=== PATIENT | male | born 2000 | race American Indian/Alaskan Native ===

== ENCOUNTER 2022-02-24 09:17 | Emergency (ER) | payer SELFPAY ==
[2022-02-24 10:03] VITALS: BP 128/77
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
== END 2022-02-24 14:26 | disposition home or self-care (01) ==
LOC: ED 09:17
DX: M54.9 Dorsalgia, unspecified (principal); M79.651 Pain in right thigh; Z79.899 Other long term (current) drug therapy; V89.2XXA Person injured in unspecified motor-vehicle accident, traffic, initial encounter; Y93.89 Activity, other specified; Y92.89 Other specified places as the place of occurrence of the external cause; Y99.8 Other external cause status
CPT/HCPCS: 70450; 72100; 99284